=== PATIENT | female | born 1965 | race Caucasian/White ===

== ENCOUNTER 2017-01-26 08:09 | Emergency (ER) | payer OTHER ==
[~2017-01-26] VITALS: Ht 170.2 cm; Wt 121.5 kg
[~2017-01-26 08:09] MED LIST: ASPIR 8181 M1 PO; COUMADIN10 MG PO; DESMOPRESSIN A0.1 MG PO; ERGOCALCIF50000 UNIT; FLEXERIL10 MG PO; HALOBETASOL PRO15 GM; IMDUR60 MG PO; LASIX20 MG PO; LISINOPRIL 20 MG TAB; LISINOPRIL-HCTZ 20-1; METOPROLOL TART25 MG; NAPROSYN500 MG PO; NORCO 5/3251 TABLET PO; OMEPRAZOLE40 M1; OSTERA TABLET1 EACH PO; PREDNISONE20 MG PO; TESSALON200 MG PO; ZITHROMAX Z-PA250 MG PO; ZOFRAN4 MG PO
[2017-01-26] MEDS ORDERED: LABETALOL HCL200 MG PO (08:35)
[2017-01-26] MEDS ORDERED: PRAVASTATIN SOD40 MG PO (08:36)
[2017-01-26] MEDS ORDERED: LOSARTAN POTASS50 MG PO (08:36)
[2017-01-26] MEDS ORDERED: NORVASC10 MG PO (08:36)
[2017-01-26] MEDS ORDERED: HYDROCHLOROTHIA25 MG PO (08:37)
[2017-01-26] MEDS ORDERED: ASPIRIN81 M2 PO (08:38)
[2017-01-26] MEDS ORDERED: GLIPIZIDE10 MG PO (08:38)
[2017-01-26 09:48] LABS: HEMATOCRIT 43.3 % (36.0-46.0); MCH 29.7 PG (29.0-34.0); MCHC 34.4 G/DL (30.0-36.0); MCV 86.4 FL (83-99); PLATELET COUNT 181 K/uL (156-360); RBC DIS.WIDTH-CV 13.7 % (11.8-14.6); RBC DIS.WIDTH-SD 42.2 % (39-53); RED BLOOD COUNT 5.01 M/uL (3.80-5.20); WHITE BLOOD COUNT 9.1 K/uL (4.1-10.2)
[2017-01-26 09:56] LABS: CHLORIDE 105 mEq/L (99-109); POTASSIUM 5.4 mEq/L (3.7-5.4); SODIUM 140 mEq/L (136-147)
[2017-01-26 09:58] LABS: GLUCOSE 284 mg/dL (70-99)
[2017-01-26 10:00] LABS: ANION GAP 10 MEQ/L (2-14)
[2017-01-26 10:02] LABS: GFR ESTIMATE (CALCULATED) > 59 mL/min/
[2017-01-26 10:03] LABS: UREA NITROGEN (BUN) 16 mg/dL (9-23)
[2017-01-26 10:08] LABS: TROP-I INTERPRETATION NEGATIVE; TROPONIN-I < 0.01 ng/mL (0.0-0.30)
[2017-01-26 10:10] LABS: QUANTITATIVE HCG < 4.0 MIU/ML
[2017-01-26 11:21] LABS: ADD MIUA? YES; BILIRUBIN NEGATIVE; BLOOD NEGATIVE; COLOR YELLOW ((YELLOW)); GLUCOSE (STRIP) >=500; KETONES 5; LEUKOCYTES NEGATIVE; NITRITE NEGATIVE; PROTEIN (STRIP) 30; SPECIFIC GRAVITY 1.025 (1.000-1.030); UROBILINOGEN 0.2 MG/DL (0.2-1.0)
[2017-01-26 11:32] LABS: BACTERIA 3+ /HPF; EPITHELIAL CELLS 3+ /HPF; MUCUS TRACE /LPF; RED BLOOD CELLS 0-5 /HPF (0-5); UCUL ADDED? NO; WHITE BLOOD CELLS 0-5 /HPF (0-5)
[2017-01-26] MEDS ORDERED: ZITHROMAX Z-PA250 MG PO (13:48)
[2017-01-26 13:55] VITALS: BP 139/98
== END 2017-01-26 14:07 | disposition home or self-care (01) ==
LOC: EME 08:09
PROVIDERS: Emergency Medicine
DX: J40 Bronchitis, not specified as acute or chronic (principal); F17.200 Nicotine dependence, unspecified, uncomplicated; Z71.6 Tobacco abuse counseling; I10 Essential (primary) hypertension; K21.9 Gastro-esophageal reflux disease without esophagitis; Z86.711 Personal history of pulmonary embolism
CPT/HCPCS: 71010; 80048; 81003; 84484; 84702; 85027; 93005; 99281; 99284

== ENCOUNTER 2017-03-27 09:16 | Emergency (ER) | payer OTHER ==
[~2017-03-27] VITALS: Ht 170.2 cm; Wt 122.2 kg
[~2017-03-27 09:16] MED LIST changes: +ASPIRIN81 M2 PO; +GLIPIZIDE10 MG PO; +HYDROCHLOROTHIA25 MG PO; +LABETALOL HCL200 MG PO; +LOSARTAN POTASS50 MG PO; +NORVASC10 MG PO; +PRAVASTATIN SOD40 MG PO
[2017-03-27 09:39] LABS: HEMATOCRIT 41.4 % (36.0-46.0); MCH 29.3 PG (29.0-34.0); MCHC 33.3 G/DL (30.0-36.0); MCV 87.9 FL (83-99); MEAN PLAT.VOLUME 9.5 uM^3 (9.5-12.4); PLATELET COUNT 210 K/uL (156-360); RBC DIS.WIDTH-SD 42.1 % (39-53); RED BLOOD COUNT 4.71 M/uL (3.80-5.20); WHITE BLOOD COUNT 7.5 K/uL (4.1-10.2)
[2017-03-27 09:50] LABS: CHLORIDE 103 mEq/L (99-109); POTASSIUM 4.1 mEq/L (3.7-5.4); SODIUM 138 mEq/L (136-147)
[2017-03-27 09:52] LABS: GLUCOSE 278 mg/dL (70-99)
[2017-03-27 09:53] LABS: ANION GAP 9 MEQ/L (2-14)
[2017-03-27 09:54] LABS: TOTAL BILIRUBIN 0.6 mg/dL (0.0-1.0)
[2017-03-27 09:56] LABS: ALKALINE PHOSPHATASE 114 IU/L (3-129); GFR ESTIMATE (CALCULATED) > 59 mL/min/
[2017-03-27 09:57] LABS: UREA NITROGEN (BUN) 15 mg/dL (9-23)
[2017-03-27 09:59] LABS: TROP-I INTERPRETATION NEGATIVE; TROPONIN-I < 0.01 ng/mL (0.0-0.30)
[2017-03-27 10:04] LABS: QUANTITATIVE HCG < 4.0 MIU/ML
[2017-03-27 11:40] LABS: ADD MIUA? YES; BILIRUBIN NEGATIVE; BLOOD NEGATIVE; COLOR YELLOW ((YELLOW)); GLUCOSE (STRIP) >=500; KETONES NEGATIVE; LEUKOCYTES NEGATIVE; NITRITE NEGATIVE; PROTEIN (STRIP) NEGATIVE; SPECIFIC GRAVITY 1.021 (1.000-1.030); UROBILINOGEN 0.2 MG/DL (0.2-1.0)
[2017-03-27 11:55] LABS: BACTERIA NONE SEEN /HPF; EPITHELIAL CELLS 2+ /HPF; MUCUS NONE SEEN /LPF; RED BLOOD CELLS NONE SEEN /HPF (0-5); UCUL ADDED? NO; WHITE BLOOD CELLS NONE SEEN /HPF (0-5)
[2017-03-27] MEDS ORDERED: ZOFRAN ODT4 MG PO (13:09)
[2017-03-27] MEDS ORDERED: BENTYL20 MG PO (13:09)
[2017-03-27 13:18] VITALS: BP 178/87
== END 2017-03-27 13:19 | disposition home or self-care (01) ==
LOC: EME 09:16
DX: R10.13 Epigastric pain (principal); K82.8 Other specified diseases of gallbladder; E11.9 Type 2 diabetes mellitus without complications; I10 Essential (primary) hypertension; Z86.711 Personal history of pulmonary embolism; R73.03 Prediabetes; Z88.5 Allergy status to narcotic agent; F17.200 Nicotine dependence, unspecified, uncomplicated; Z79.84 Long term (current) use of oral hypoglycemic drugs; Z79.82 Long term (current) use of aspirin
CPT/HCPCS: 71020; 76705; 80053; 81003; 84484; 84702; 85027; 93005; 99281; 99284

== ENCOUNTER → 2017-04-19 | Outpatient (CLI) | payer OTHER ==
[~2017-04-19] MED LIST changes: +BENTYL20 MG PO; +ZOFRAN ODT4 MG PO
== END | disposition home or self-care (01) ==
LOC: NUC 08:53
DX: R10.13 Epigastric pain (principal); R10.11 Right upper quadrant pain; R13.10 Dysphagia, unspecified; K76.0 Fatty (change of) liver, not elsewhere classified; R11.0 Nausea
CPT/HCPCS: 78226; A9537

== ENCOUNTER 2017-07-17 11:16 | Emergency (ER) | payer OTHER ==
[~2017-07-17] VITALS: Ht 167.6 cm; Wt 126.1 kg
[2017-07-17 13:01] LABS: EOSINOPHIL (%) 1.1 % (0-5); EOSINOPHIL COUNT 0.1 K/uL (0-0.3); HEMATOCRIT 37.6 % (36.0-46.0); IMMATURE GRANULOCYTE (%) 0.8 % (0.0-0.7); IMMATURE GRANULOCYTE COUNT 0.1 K/uL; INSTRUMENT ABS NEUTROPHIL CT 5.1 K/uL; LYMPHOCYTE COUNT 3.2 K/uL (1.0-2.8); MCH 29.5 PG (29.0-34.0); MCHC 33.2 G/DL (30.0-36.0); MCV 88.7 FL (83-99); MEAN PLAT.VOLUME 9.6 uM^3 (9.5-12.4); MONOCYTE (%) 7.3 % (3-12); MONOCYTE COUNT 0.7 K/uL (0-0.8); NEUTROPHIL (%) 55.5 % (45-76); NEUTROPHIL COUNT 5.1 K/uL (1.8-6.4); PLATELET COUNT 170 K/uL (156-360); RBC DIS.WIDTH-CV 13.2 % (11.8-14.6); RBC DIS.WIDTH-SD 42.7 % (39-53); RED BLOOD COUNT 4.24 M/uL (3.80-5.20); WHITE BLOOD COUNT 9.1 K/uL (4.1-10.2)
[2017-07-17 13:13] LABS: CHLORIDE 104 mEq/L (99-109); POTASSIUM 3.7 mEq/L (3.7-5.4); SODIUM 138 mEq/L (136-147)
[2017-07-17 13:14] LABS: GLUCOSE 253 mg/dL (70-99)
[2017-07-17 13:16] LABS: ANION GAP 10 MEQ/L (2-14)
[2017-07-17 13:18] LABS: GFR ESTIMATE (CALCULATED) > 59 mL/min/
[2017-07-17 13:19] LABS: UREA NITROGEN (BUN) 17 mg/dL (9-23)
[2017-07-17 13:29] LABS: TROP-I INTERPRETATION NEGATIVE; TROPONIN-I < 0.01 ng/mL (0.0-0.30)
[2017-07-17 15:00] LABS: TROP-I INTERPRETATION NEGATIVE; TROPONIN-I < 0.01 ng/mL (0.0-0.30)
[2017-07-17 15:58] VITALS: BP 144/84
== END 2017-07-17 15:59 | disposition home or self-care (01) ==
LOC: EME 11:16
PROVIDERS: Emergency Medicine
DX: R07.89 Other chest pain (principal); K21.9 Gastro-esophageal reflux disease without esophagitis; I10 Essential (primary) hypertension; E11.9 Type 2 diabetes mellitus without complications; Z86.711 Personal history of pulmonary embolism; F17.200 Nicotine dependence, unspecified, uncomplicated; Z79.84 Long term (current) use of oral hypoglycemic drugs; Z79.82 Long term (current) use of aspirin
CPT/HCPCS: 71010; 80048; 84484; 85025; 93005

== ENCOUNTER 2018-05-01 13:21 | Emergency (ER) | payer OTHER ==
[~2018-05-01] VITALS: Ht 170.2 cm; Wt 113.2 kg
[2018-05-01 14:21] LABS: BASOPHIL (%) 0.7 % (0-1); BASOPHIL COUNT 0.1 K/uL (0-0.1); EOSINOPHIL (%) 1.3 % (0-5); EOSINOPHIL COUNT 0.1 K/uL (0-0.3); HEMOGLOBIN 14.6 G/DL (11.9-15.5); IMMATURE GRANULOCYTE (%) 0.4 % (0.0-0.7); LYMPHOCYTE COUNT 3.2 K/uL (1.0-2.8); MCH 30.4 PG (29.0-34.0); MCHC 34.8 G/DL (30.0-36.0); MCV 87.5 FL (83-99); MONOCYTE (%) 7.6 % (3-12); MONOCYTE COUNT 0.7 K/uL (0-0.8); PLATELET COUNT 165 K/uL (156-360); RBC DIS.WIDTH-CV 12.6 % (11.8-14.6); WHITE BLOOD COUNT 9.1 K/uL (4.1-10.2)
[2018-05-01 14:27] LABS: INTER. NORMALIZED RATIO 1.1
[2018-05-01 14:29] LABS: CHLORIDE 104 mEq/L (99-109); POTASSIUM 4.3 mEq/L (3.7-5.4)
[2018-05-01 14:30] LABS: SODIUM 139 mEq/L (136-147)
[2018-05-01 14:35] LABS: CREATININE 0.8 mg/dL (0.6-1.3); GFR ESTIMATE (CALCULATED) > 59 mL/min/
[2018-05-01 14:36] LABS: UREA NITROGEN (BUN) 13 mg/dL (9-23)
[2018-05-01 14:41] LABS: TROP-I INTERPRETATION NEGATIVE; TROPONIN-I < 0.01 ng/mL (0.0-0.30)
[2018-05-01 14:47] LABS: GLUCOSE 244 mg/dL (70-99); TOTAL PROTEIN 7.1 g/dL (6.4-8.3)
[2018-05-01 14:49] LABS: TOTAL BILIRUBIN 0.8 mg/dL (0.0-1.0)
[2018-05-01 14:50] LABS: ALKALINE PHOSPHATASE 134 IU/L (3-129)
[2018-05-01 14:52] LABS: AST (GOT) 16 IU/L (2-34); DIRECT BILIRUBIN 0.3 mg/dL (0.0-0.3)
[2018-05-01 14:53] LABS: ALT (GPT) 23 IU/L (3-49); LIPASE 41 U/L (1.0-51.0)
[2018-05-01 16:12] LABS: TROP-I INTERPRETATION NEGATIVE; TROPONIN-I < 0.01 ng/mL (0.0-0.30)
[2018-05-01 17:10] VITALS: BP 139/84
== END 2018-05-01 17:30 | disposition home or self-care (01) ==
LOC: EME 13:21
PROVIDERS: Emergency Medicine
DX: R07.89 Other chest pain (principal); K76.0 Fatty (change of) liver, not elsewhere classified; R16.0 Hepatomegaly, not elsewhere classified; E11.9 Type 2 diabetes mellitus without complications; I10 Essential (primary) hypertension; K21.9 Gastro-esophageal reflux disease without esophagitis; F17.200 Nicotine dependence, unspecified, uncomplicated; Z86.711 Personal history of pulmonary embolism; Z90.711 Acquired absence of uterus with remaining cervical stump; Z79.84 Long term (current) use of oral hypoglycemic drugs; Z79.82 Long term (current) use of aspirin; Z88.5 Allergy status to narcotic agent
CPT/HCPCS: 71045; 76705; 80048; 80076; 83690; 84484; 85025; 85379; 85610; 85730; 93005; 99281; 99284